=== PATIENT | male | born 1980 | race African-American/Black ===

== ENCOUNTER 2017-06-09 18:18 | Emergency (ER) | payer SELFPAY ==
[2017-06-09] MEDS ORDERED: CONTRAST GIVEN MC (19:30)
[2017-06-09] MEDS: IV NORMAL SALINE 1000ML BAG 1,000 ML IV (19:33)
[2017-06-09 19:34] LABS: ADD MAN DIFF? NO
[2017-06-09] MEDS: ASPIRIN CHEWABLE 81 MG TABLET. PO (19:34)
[2017-06-09] MEDS: KETOROLAC 30 MG/ML INJ. IV (19:35)
[2017-06-09 19:42] LABS: BASO % 1 % (0-3); EOS # 0.1 x10^3/uL (0.0-0.7); EOS % 2 % (0-3); HEMATOCRIT 38.8 % (39.0-53.0); HEMOGLOBIN 13.4 g/dL (13.0-17.5); LYMPH # 1.2 x10^3/uL (1.0-4.8); LYMPH % 22 % (24-48); MEAN CORPUSCULAR HEMOGLOBIN 27 pg (25-35); MEAN CORPUSCULAR HGB CONC 35 g/dL (31-37); MEAN CORPUSCULAR VOLUME 78 fL (79-100); MONO # 0.4 x10^3/uL (0.0-1.1); MONO % 7 % (0-9); NEUT # 3.5 x10^3uL (1.8-7.7); NEUT % 68 % (31-73); PLATELET COUNT 172 x10^3/uL (140-400); RED BLOOD COUNT 4.96 x10^6/uL (4.30-5.70); RED CELL DISTRIBUTION WIDTH 14.4 % (11.5-14.5); WHITE BLOOD COUNT 5.1 x10^3/uL (4.0-11.0)
[2017-06-09 19:46] LABS: BILIRUBIN,URINE NEGATIVE (NEG); CLARITY,URINE CLOUDY; COLOR,URINE YELLOW; GLUCOSE,URINE NEGATIVE (NEG); NITRITE,URINE NEGATIVE (NEG); PH,URINE 8.5; PROTEIN,URINE NEGATIVE (NEG-TRACE); UROBILINOGEN,URINE 0.2 mg/dL (0.2 mg/dL)
[2017-06-09 19:53] LABS: LIPASE 104 U/L (73-393)
[2017-06-09 19:53] LABS: AMPHETAMINE/METHAMPHETAMINE NEG (NEG); BARBITURATES NEG (NEG); BENZODIAZEPINES NEG (NEG); CANNABINOIDS POS (NEG); COCAINE NEG (NEG); ETHANOL, URINE NEG (NEG); METHADONE NEG (NEG); OPIATES POS (NEG); PHENCYCLIDINE POS (NEG); RBC,URINE 0 /HPF (0-2); WBC,URINE 0 /HPF (0-4)
[2017-06-09 19:54] LABS: BACTERIA,URINE 0 /HPF (0-FEW)
[2017-06-09 20:05] LABS: TROPONINI < 0.017 ng/mL (0.000-0.055)
[2017-06-09 21:44] LABS: ANION GAP 11 (6-14); BLOOD UREA NITROGEN 11 mg/dL (8-26); BUN/CREATININE RATIO 14 (6-20); CARBON DIOXIDE 26 mmol/L (21-32); CHLORIDE 104 mmol/L (98-107); CREATININE 0.8 mg/dL (0.7-1.3); GFR 131.6; GLUCOSE 101 mg/dL (70-99); SODIUM 141 mmol/L (136-145)
[2017-06-09 21:53] LABS: AGAP ISTAT 16 mmol/L (6-14); BUN ISTAT 8 mg/dL (8-26); CHLORIDE ISTAT 105 mmol/L (98-110); CREATININE ISTAT 0.8 mg/dL (0.5-1.4); GLUCOSE ISTAT 95 mg/dL (70-99); HEMATOCRIT ISTAT 37 % (37-52); HEMOGLOBIN ISTAT 12.6 g/dL (14-18); ION CA ISTAT 1.19 mmol/L (1.13-1.32); POTASSIUM ISTAT 3.9 mmol/L (3.5-5.0); SODIUM ISTAT 141 mmol/L (135-145); TOT CO2 ISTAT 26 mmol/L (23-32)
[2017-06-09 22:03] LABS: ALBUMIN 3.9 g/dL (3.4-5.0); ALBUMIN/GLOBULIN RATIO 1.1 (1.0-1.7); ALK PHOS 72 U/L (46-116); ALT (SGPT) 20 U/L (16-63); AST (SGOT) 20 U/L (15-37); TOTAL BILIRUBIN 0.3 mg/dL (0.2-1.0); TOTAL PROTEIN 7.5 g/dL (6.4-8.2)
[2017-06-09] MEDS: IOHEXOL 300 MG/ML 100ML VIAL. IV (22:15)
== END 2017-06-09 23:30 | disposition home or self-care (01) ==
LOC: ER 18:18
DX: R07.89 Other chest pain (principal); M54.6 Pain in thoracic spine; I10 Essential (primary) hypertension; F12.10 Cannabis abuse, uncomplicated; F16.10 Hallucinogen abuse, uncomplicated; E78.5 Hyperlipidemia, unspecified
CPT/HCPCS: 36415; 71045; 71275; 80047; 80053; 80307; 81001; 83690; 84484; 85025; 93005; 96361; 96374; 99285-25; J1885; J7030; Q9967